=== PATIENT | female | born 1985 | race Hispanic/Latino ===

== ENCOUNTER 2021-02-28 09:27 | Emergency (ER) | payer OTHER ==
[~2021-02-28] VITALS: Ht 170.2 cm; Wt 72.6 kg
[2021-02-28] MEDS ORDERED: IBUPROFEN 600 MG TAB PO STA (09:33)
[2021-02-28] MEDS ORDERED: IBUPROFEN 600 MG TAB ONE (09:52)
== END 2021-02-28 10:55 | disposition home or self-care (01) ==
LOC: ER 09:43
DX: V43.52XA Car driver injured in collision with other type car in traffic accident, initial encounter (principal); Y92.414 Local residential or business street as the place of occurrence of the external cause; M54.2 Cervicalgia; E11.9 Type 2 diabetes mellitus without complications
CPT/HCPCS: 99282